=== PATIENT | male | born 1985 | race Caucasian/White ===

== ENCOUNTER 2016-11-06 18:03 | Emergency (ER) | payer SELFPAY ==
[~2016-11-06] VITALS: Ht 182.9 cm; Wt 125.0 kg
[~2016-11-06 18:03] MED LIST: BACT800T5 PO; CEPH500C3 PO; MICO2CRE4 TOP
[2016-11-06 18:06] VITALS: BP 157/95; PULSE 113; RESP 12; TEMP 98.1; O2SAT 99
--- NOTE | 2016-11-06 18:40 | PD ---
HPI Chief Complaint: Back/ Neck Pain or Injury Time Seen by Provider: 18:37 Travel History International Travel<30 days: No Contact w/Intl Traveler<30days: No Traveled to known affect area: No History of Present Illness HPI Patient comes in complaining of pain to his right trapezius that began approximately a week prior to [place]. Patient denies any known direct trauma. 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 Patient reports he did see a chiropractor with no improvement of his symptoms. Patient's pain is getting progressively worse and started to radiate into his right upper extremity causing him intermittent tingling in his fingers. Patient has tried [id number] medication with no improvement of his symptoms. Pain is worse with palpation and certain movement. Denies any fever, chest pain, shortness of breath, headaches, nausea, vomiting, dizziness, loss or change in bowel or bladder, or IV drug use. PFSH Past Medical History Medical History: Denies Significant Hx Diminished Hearing: No Social History Alcohol Use: Yes (socailly) Tobacco Use: No Substance Use: No Allergies-Medications (Allergen,Severity, Reaction): Coded Allergies: No Known Allergies (Unverified , 11/06/16) Reported Meds & Prescriptions Reported Meds & Active Scripts Active Prednisone (21) 10 mg tab Dose Pack (Prednisone) 10 Mg Pack 10 Mg PO DIRECTED Robaxin (Methocarbamol) 750 Mg Tab 750 Mg PO Q8HR PRN Miconazole [id number] 2 % Cre 1 Applic TOP BID 14 Days APPLY TO: Keflex (Cephalexin Monohydrate) 500 Mg Cap 500 Mg PO QID Bactrim Ds1 Tab 1 Tab Tab 1 Tab PO BID 14 Days Review of Systems Except as stated in HPI: all other systems reviewed are Neg Physical Exam Narrative GENERAL: Well-developed, overly nourished, in no acute distress, and non-ill appearing. SKIN: Warm and dry. HEAD: Atraumatic. Normocephalic. EYES: Pupils equal and round. EOMI. No scleral icterus. No injection or drainage. ENT: No nasal bleeding or discharge. Mucous membranes pink and moist. NECK: Trachea midline. Supple. No nuclear rigidity. No tenderness or crepitus over midline cervical spine. Patient reports tenderness over right trapezius muscle laterally. CARDIOVASCULAR: Radial pulses 2+ intact bilaterally. Capillary refill less than 2 seconds. RESPIRATORY: No accessory muscle use. No respiratory distress. MUSCULOSKELETAL: No obvious deformities. No clubbing. No cyanosis. No edema. Full range of motion. Shoulder:FROM equal BL with passive flexion, extension, Abduction, Adduction, internal/external rotation, and pronation/supination. Sensation equal BL deltoid muscles. Pulses equal BL distal to injury. Capillary refill less than 2 seconds distal to injury and equal BL. FROM distal to injury and equal BL. Strength distal to injury equal BL. NV intact distal to injury equal BL. Flexion and extension of thumb equal BL. Equal strength and movement with abduction/adductions of BL fingers. Geophysics Scientist strength equal BL. NEUROLOGICAL: Awake and alert. No obvious cranial nerve deficits. Motor grossly within normal limits. Normal speech. PSYCHIATRIC: Appropriate mood and affect; insight and judgment normal. Data Data Last Documented VS Vital Signs Date Time Temp Pulse Resp B/P Pulse Ox O2 Delivery O2 Flow Rate FiO2 11/06/16 18:06 98.1 113 12 157/95 99 Room Air MDM Medical Decision Making Medical Screen Exam Complete: Yes Emergency Medical Condition: Yes Differential Diagnosis Fracture, strain, contusion, other Narrative Course There was no history of recent fall or blunt trauma. However, history elicited activity likely causing muscular strain and injury. There was no evidence to support genitourinary etiology. There is also no evidence to suggest vascular pathology such as AAA dissection. No fevers or other evidence to suspect infectious processes, abscess, osteomyelitis etc. The patients neurological exam is normal with normal motor and sensory. There is no saddle paresthesias reported and no bowel or bladder incontinence or retention. I suspect the pain is mechanical in nature. Clinical suspicion, plan of care and management was discussed with the patient. The patient was instructed to follow up with their health care provider. The patient was also instructed to return if the pain worsened, changed, or developed weakness or bowel or bladder trouble. The patient agreed with plan. Patient in no obvious distress upon re-evaluation. Patient was asked if they wanted to speak to my attending, which the patient did not wish to do at this time. Any questions/concerns in reference to patient diagnosis/condition discussed and clarified prior to patient's discharge. Reinforced sheer importance of close follow up with patient's primary physician or primary care clinic. Instructed patient to return to ED immediately, if symptoms return/ worsen. Pt showed understanding of above instructions. Further instructions and recommendations were detailed in discharge paperwork. Pt ambulated without difficulty out of ED at discharge. Diagnosis Primary Impression: Musculoskeletal pain Patient Instructions: General Instructions, Musculoskeletal Pain (ED) Additional Instructions: Follow-up with your primary care physician and/or orthopedics in 3-5 days for reevaluation. Take all medication as prescribed. Return to the emergency department if symptoms get worse. Med/Other Pt SpecificInfo: Prescription(s) given Scripts Prednisone (21) 10 mg tab Dose Pack 10 Mg Pack10 Mg PO DIRECTED #1 DSPK Ref 0 Prov:Buddy Ramirez MD 11/06/16 Methocarbamol (Robaxin)750 Mg [id number] Mg PO Q8HR PRN (MUSCLE PAIN) #15 TAB Ref 0 Prov:Buddy Ramirez MD 11/06/16 Disposition: 01 DISCHARGE HOME Condition: Stable Jose Lozano Nov 06, 2016 18:40
[2016-11-06] MEDS ORDERED: ROBA750T PO (18:42)
[2016-11-06] MEDS ORDERED: PRED10PA PO (18:42)
== END 2016-11-06 19:01 | disposition home or self-care (01) ==
LOC: NEPB 18:03
DX: M79.1 Myalgia (principal)
CPT/HCPCS: 99283

== ENCOUNTER 2016-11-12 18:01 | Emergency (ER) | payer SELFPAY ==
[~2016-11-12] VITALS: Ht 182.9 cm; Wt 125.0 kg
[~2016-11-12 18:01] MED LIST changes: +PRED10PA PO; +ROBA750T PO
[2016-11-12 18:03] VITALS: BP 127/73; PULSE 97; RESP 20; TEMP 97.7; O2SAT 96
--- NOTE | 2016-11-12 18:31 | PD ---
HPI Chief Complaint: Musculoskeletal Complaint Time Seen by Provider: 18:31 Travel History International Travel<30 days: No Contact w/Intl Traveler<30days: No Traveled to known affect area: No History of Present Illness HPI 31-year-old male presents to the emergency department with complaint of right shoulder pain and trapezius muscle pain for approximately one week. He denies injury. 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 He says he was seen here about a week ago and was given medications which he has completed with no relief of symptoms. He has not followed up outpatient. He reports continued muscle spasms in his right upper trapezius muscle that continued down his arm. Reports decreased range of motion secondary to pain in his right shoulder. Reports numbness and tingling occasionally in his right hand. Denies neck pain. Was taking Robaxin with good relief but ran out. Has been using an arm sling for support with some relief. Has tried ice, heat, topicals ointments. Denies fever, chills, nausea, vomiting. Denies loss of sensation, decreased strength. No known allergies. Denies primary care provider. No other modifying factors or associated signs and symptoms. PFSH Past Medical History Diminished Hearing: No Social History Alcohol Use: Yes (socailly) Tobacco Use: No Substance Use: Yes (marijuana) Allergies-Medications (Allergen,Severity, Reaction): Coded Allergies: No Known Allergies (Unverified , 11/12/16) Reported Meds & Prescriptions Reported Meds & Active Scripts Active Ibuprofen 800 Mg Tab 800 Mg PO Q6HR PRN Robaxin (Methocarbamol) 500 Mg Tab 500 Mg PO QID PRN Review of Systems Except as stated in HPI: all other systems reviewed are Neg Physical Exam Narrative GENERAL: Well-nourished, well-developed male patient, in no acute distress SKIN: Warm and dry. HEAD: Atraumatic. Normocephalic. EYES: Pupils equal and round. No scleral icterus. No injection or drainage. ENT: Mucosa pink and moist. Airway patent. NECK: Supple. Trachea midline. CARDIOVASCULAR: Regular rate and rhythm. RESPIRATORY: No accessory muscle use. GASTROINTESTINAL: Rounded. MUSCULOSKELETAL: Right shoulder with full range of motion and greater than 45 abduction; right shoulder with no obvious deformity; 5/5 optician strength; tenderness on palpation to the acromioclavicular joint and coracoid process area. Shoulders equal. Right upper extremity supple and non-tense without erythema or edema. 2+ radial pulse and sensory intact. NEUROLOGICAL: Awake and alert. Oriented 3. No obvious cranial nerve deficits. Motor grossly within normal limits. Normal speech. PSYCHIATRIC: Appropriate mood and affect; insight and judgment normal. Data Data Last Documented VS Vital Signs Date Time Temp Pulse Resp B/P Pulse Ox O2 Delivery O2 Flow Rate FiO2 11/12/16 18:03 97.7 97 20 127/73 96 Room Air Orders Ketorolac Inj (Toradol Inj) (11/12/16 18:45) Orphenadrine Inj (Norflex Inj) (11/12/16 18:45) Mandatory Outpatient Referral (11/12/16 18:31) [facility] Medical Decision Making Medical Screen Exam Complete: Yes Emergency Medical Condition: Yes Medical Record Reviewed: Yes Differential Diagnosis Shoulder strain, rotator cuff tear, muscle spasm Narrative Course 31-year-old male physical exam consistent with possible right shoulder strain and trapezius muscle spasms. He was previously seen on November 06, 2016. He was given Robaxin 15 pills which she said was helping for his muscle spasms. I do not suspect fracture, dislocation, joint separation and feel that imaging is not necessary. Mandatory outpatient referral to orthopedics ordered to rule out rotator cuff, as patient does not have insurance. Toradol and Norflex administered in the ER. Ibuprofen and Robaxin prescribed for home. Follow-up with orthopedic outpatient. Patient is medically cleared and stable for discharge. Discussed reasons to return to the emergency department. Instructed patient to follow up with primary care provider. Patient agrees with treatment plan. The patients vital signs are stable and the patient is stable for outpatient follow-up and treatment. Patient discharged home, stable and in no acute distress. Diagnosis Primary Impression: Right shoulder strain Qualified Code: S46.911D - Right shoulder strain, subsequent encounter Additional Impression: Trapezius muscle spasm Referrals: Orthopaedic Surgeon Primary Care Physician Patient Instructions: General Instructions, Muscle Spasm (ED), Shoulder Sprain (ED) Additional Instructions: Tylenol or ibuprofen as needed and as directed to reduce pain and inflammation Rest, ice, and compress extremity to decrease pain and inflammation Avoid aggravating activity; increase activity as tolerated Follow-up with primary care provider Follow-up with orthopedics as needed Return to the emergency department immediately with worsening symptoms Med/Other Pt SpecificInfo: Prescription(s) given Scripts Ibuprofen 800 Mg [id number] Mg PO Q6HR PRN (PAIN) #30 TAB Ref 0 Prov:Karma Salazar 11/12/16 Methocarbamol (Robaxin)500 Mg [id number] Mg PO QID PRN (MUSCLE SPASM) #20 TAB Ref 0 Prov:Karma Salazar 11/12/16 Disposition: 01 DISCHARGE HOME Condition: Stable Karma Salazar Nov 12, 2016 18:31
[2016-11-12] MEDS ORDERED: ROBA500T PO (18:34)
[2016-11-12] MEDS ORDERED: IBUP800T23 PO (18:34)
[2016-11-12] MEDS ORDERED: ORPHENADRINE INJ 60 MG/2 ML AMP IM ONE (18:45)
[2016-11-12] MEDS ORDERED: KETOROLAC TROMETHAMINE 60 MG/2 ML (IM) VIAL IM ONE (18:45)
[2016-11-12 19:00] VITALS: BP 145/87
== END 2016-11-12 19:01 | disposition home or self-care (01) ==
LOC: NEPB 18:01
DX: S46.911D Strain of unspecified muscle, fascia and tendon at shoulder and upper arm level, right arm, subsequent encounter (principal); M62.838 Other muscle spasm; R20.0 Anesthesia of skin; R20.2 Paresthesia of skin; X58.XXXD Exposure to other specified factors, subsequent encounter
CPT/HCPCS: 99283

== ENCOUNTER 2016-11-25 09:11 | Emergency (ER) | payer SELFPAY ==
[~2016-11-25] VITALS: Ht 182.9 cm; Wt 145.0 kg
[~2016-11-25 09:11] MED LIST changes: -BACT800T5 PO; -CEPH500C3 PO; +IBUP800T23 PO; -MICO2CRE4 TOP; -PRED10PA PO; +ROBA500T PO; -ROBA750T PO
[2016-11-25 09:14] VITALS: BP 160/103; PULSE 96; RESP 20; TEMP 98.1; O2SAT 99
[2016-11-25] MEDS ORDERED: ROBA500T PO (09:36)
--- NOTE | 2016-11-25 09:37 | PD ---
HPI Chief Complaint: Musculoskeletal Complaint Time Seen by Provider: 09:23 Travel History International Travel<30 days: No Contact w/Intl Traveler<30days: No Traveled to known affect area: No History of Present Illness HPI 31-year-old obese male here with complaint of left shoulder pain. Patient states that around [place] time for approximately one month patient had right sided shoulder pain. This is radiating from the neck down into the right shoulder. He was seen here twice and follow-up with his PCP on Saturday who ordered an outpatient MRI of the shoulder. In the interim his right shoulder pain has completely resolved and for the last 4 days now he has had left shoulder pain which is similar. Again starts in the neck and radiates down to the left shoulder. Worse with movement particularly abduction greater than 90 and external rotation. Patient denies any numbness or tingling. He has been taking Robaxin, Flexeril, diclofenac, prednisone without much improvement of his symptoms. PFSH Past Medical History Diminished Hearing: No Social History Alcohol Use: Yes (socailly) Tobacco Use: No Substance Use: Yes (marijuana) Allergies-Medications (Allergen,Severity, Reaction): Coded Allergies: No Known Allergies (Unverified , 11/25/16) Reported Meds & Prescriptions Reported Meds & Active Scripts Active Robaxin (Methocarbamol) 500 Mg Tab 500 Mg PO QID PRN Ibuprofen 800 Mg Tab 800 Mg PO Q6HR PRN Review of Systems Except as stated in HPI: all other systems reviewed are Neg Physical Exam Narrative GENERAL: Obese male in no acute distress SKIN: Warm and dry. HEAD: Normocephalic. EYES No scleral icterus. No injection or drainage. ENT: Mucous membranes pink and moist. NECK: Supple without midline tenderness to palpation CARDIOVASCULAR: Regular rate and rhythm. RESPIRATORY: No accessory muscle use. GASTROINTESTINAL: Morbidly obese MUSCULOSKELETAL: Left shoulder without erythema, warmth. Patient has palpable spasm of the left trapezius muscle. Passive range of motion greater than 90 abduction and external rotation reproduces patient's pain. 4+ out of 5 strength with abduction and external rotation in the left shoulder otherwise exam is unremarkable. Good distal sensation and pulses. NEUROLOGICAL: Awake and alert. Normal speech. PSYCHIATRIC: Appropriate mood and affect; insight and judgment normal. Data Data Last Documented VS Vital Signs Date Time Temp Pulse Resp B/P Pulse Ox O2 Delivery O2 Flow Rate FiO2 11/25/16 09:14 98.1 96 20 160/103 99 MDM Medical Decision Making Medical Screen Exam Complete: Yes Emergency Medical Condition: Yes Medical Record Reviewed: Yes Differential Diagnosis 31-year-old male here with 4 days of left shoulder pain after several weeks of right sided shoulder pain. My strong suspicion is that this is not intrinsic to his shoulder but is rather cervical radiculopathy. He does have a trip palpable trapezius muscle spasm on exam. Patient is being appropriately treated with anti-inflammatories and muscle relaxants at home. I do not feel narcotics would be beneficial at this time. Narrative Course See above. Recommend continuing above, we will refill his Robaxin as he only has 1 tablet left and have him follow-up with PCP as outpatient. Diagnosis Primary Impression: Cervical radiculopathy Additional Impression: Trapezius muscle spasm Referrals: Primary Care Physician 1 day Additional Instructions: Ice the affected area 20 minutes at a time 4 times daily. Call primary care provider tomorrow as instructed for outpatient follow-up and reconsideration of MRI. Med/Other Pt SpecificInfo: Prescription(s) given Scripts Methocarbamol (Robaxin)500 Mg [id number] Mg PO QID PRN (MUSCLE SPASM) #20 TAB Ref 0 Prov:Nati Wong MD 11/25/16 Disposition: 01 DISCHARGE HOME Condition: Stable Nati Wong MD Nov 25, 2016 09:37
== END 2016-11-25 09:45 | disposition home or self-care (01) ==
LOC: PHED 09:11
DX: M54.12 Radiculopathy, cervical region (principal); M62.838 Other muscle spasm
CPT/HCPCS: 99283